=== PATIENT | female | born 1980 | race Caucasian/White ===

== ENCOUNTER 2024-08-29 06:26 | Day surgery (SDC) | payer OTHER, SELFPAY | END 2024-08-29 09:38 | disposition home or self-care (01) | LOC: GI 06:26 | PROVIDERS: ATTENDING PHYSICIAN Internal Medicine Gastroenterology; FAMILY PHYSICIAN Family Medicine | DX: Z12.11 Encounter for screening for malignant neoplasm of colon (principal); K57.30 Diverticulosis of large intestine without perforation or abscess without bleeding; K64.0 First degree hemorrhoids | CPT/HCPCS: G0121 ==

== ENCOUNTER → 2024-11-10 12:22 | Outpatient (REF) | payer OTHER, SELFPAY | LOC: WDC 12:22 | PROVIDERS: ATTENDING PHYSICIAN Family Medicine | DX: Z12.31 Encounter for screening mammogram for malignant neoplasm of breast (principal) | CPT/HCPCS: 77063; 77067 ==

== ENCOUNTER → 2024-12-12 08:52 | Outpatient (REF) | payer OTHER, SELFPAY | LOC: WDC 08:52 | PROVIDERS: ATTENDING PHYSICIAN Family Medicine | DX: R92.2 Inconclusive mammogram (principal); R92.30 Dense breasts, unspecified | CPT/HCPCS: 76641 ==

== ENCOUNTER 2025-02-19 20:14 | Emergency (ER) | payer OTHER, SELFPAY ==
[2025-02-19 20:20] VITALS: BP 158/104
[2025-02-19 20:42] LABS: Hematocrit 36.1 % (37.0-47.0); Hemoglobin 12.6 g/dL (12.0-16.0); Mean Corp Hgb Conc. 34.9 g/dL (33.0-37.0); Mean Corpuscular Volume 85.7 fL (81.0-99.0); Nucleated Red Blood Cells % 0 %; Platelet Count 263 10^3/uL (130-400); Red Cell Dist. Width 11.6 % (11.5-14.5)
[2025-02-19 21:06] LABS: ALT (SGPT) 39 U/L (0-35); AST (SGOT) 32 U/L (14-36); Albumin 4.2 g/dl (3.5-5.0); Alkaline Phosphatase 105 U/L (38-126); Blood Urea Nitrogen 10 mg/dl (7-17); Calcium 9.2 mg/dl (8.4-10.2); Carbon Dioxide 21 mmol/L (22-30); Chloride 103 mmol/L (98-107); Glucose 105 mg/dl (70-99); Potassium 4.0 mmol/L (3.5-5.1); Sodium 134 mmol/L (135-145); Total Protein 7.2 g/dl (6.3-8.2); eGFR > 60.00
--- NOTE | 2025-02-19 21:26 | ED.GENMED ---
History of Present Illness
General
Chief Complaint: Cold/Flu/URI Symptoms
Source: patient
Exam Limitations: none
Time Seen by Provider: 02/19/25 21:13
History of Present Illness
History of Present Illness:
44yoF with history of hypothyroidism presenting with her for evaluation of flu-like symptoms. Symptoms began 4 days ago. She reports fevers, chills, body aches, headache, and cough. Cough is productive of brownish sputum. Her headache
has been ongoing for about 2 to 3 days and is severe. Headache is worse with coughing and she states this is the worst headache she's ever head. Tmax 100. She saw her PCP 3 days ago and COVID/flu testing were negative. She was diagnosed with a
viral illness and advised to use Tylenol/ibuprofen around the clock. She denies any abdominal pain or rashes. No known sick contacts.
Phy Exam
Physical Exam
Physical Exam:
Appears uncomfortable, tearful
General Physical Exam
General Presentation: well appearing
General Skin: warm and dry
General Habitus: normal
General Mental: alert
ENT Exam
ENT Exam: TM's normal, pharynx normal, neck supple, normocephalic and other (Full range of motion of cervical spine without meningismus)
Cardiovascular Exam
Cardiovascular Exam: regular rate/rhythm
Pulmonary Exam
Pulmonary Exam: no respiratory distress, no rales, no crackles, no rhonchi, generalized wheezing and other (Expiratory wheezes noted throughout)
Gastrointestinal Exam
Gastrointestinal Exam: non tender, soft and non distended
Neurological Exam
Neurological Exam: alert, no motor deficits and speech normal
Kenny Coma Scale
Eye Opening: Spontaneous
Verbal Response: Oriented
Motor Response: Obeys Commands
GCS Total Score: 15
Skin Exam
Skin Exam: normal color, warm/dry and no rash
Psychiatric Exam
Psychiatric Exam: normal mood/affect
Sepsis
Sepsis Screening
Sepsis Assessment: Sepsis Ruled Out
Sepsis Screen
Sepsis Screen: Sepsis Ruled Out
Date: 02/20/25
Time: 01:08
Course
Orders/Labs/Results
Orders:
Orders
02/19/25 20:25
Chest [CR Chest - 2 Views ] Urgent
Comment:
Reason For Exam: COUGH/SOB
02/19/25 20:33
Complete Blood Count/With Diff Urgent
Comprehensive Metabolic Panel Urgent
Influenza A+B Rapid Molecular Urgent
PRIYANKA Source: Nasal Swab
Specimen Description:
02/19/25 21:25
0.9% Sodium Chloride 1000 ml [Nss] 1,000 ml IV BOLUS
Diphenhydramine [Benadryl] 25 mg IV NOW STA
Ipratropium/Albuterol Sulfate [Duoneb] 3 ml INH R NOW STA
Ketorolac [Toradol] 15 mg IV NOW STA
Metoclopramide [Reglan] 10 mg IV NOW STA
02/19/25 22:12
CT Head & Neck Angio W/wo IV Urgent
Comment:
Reason For Exam: severe headache
02/19/25 23:23
Ketorolac [Toradol] 15 mg IV NOW STA
02/19/25 23:44
0.9% Sodium Chloride 1000 ml [Nss] 1,000 ml IV BOLUS
Acetaminophen 1000MG/100Ml [Ofirmev] 1,000 mg in 100 ml IV ONCE
Acetaminophen IV Indication:: ED Narcotic Naive Pt-ONCE
Doxycycline [Vibramycin] 100 mg PO NOW STA
02/20/25 00:23
Dexamethasone Sod Phosphate [Decadron] 10 mg IV NOW STA
Abnormal Lab Results
02/19/25
20:33
Hct 36.1 L %
(37.0-47.0)
Absolute Neuts (auto) 8.3 H 10^3/uL
(1.4-6.5)
Neutrophils % 79.9 H %
(42.2-75.2)
Lymphocytes % 12.1 L %
(20.5-51.1)
Sodium 134 L mmol/L
(135-145)
Carbon Dioxide 21 L mmol/L
(22-30)
Glucose 105 H mg/dl
(70-99)
ALT 39 H U/L
(0-35)
02/19/25 20:33
02/19/25 20:33
Vital Signs
Initial and Last Documented VS:
Initial Vital Signs
Temp Pulse Resp BP Pulse Ox
98.7 F 90 26 158/104 98
02/19/25 20:20 02/19/25 20:20 02/19/25 20:20 02/19/25 20:20 02/19/25 20:20
Last Documented Vital Signs
Temp Pulse Resp BP Pulse Ox
98.8 F 91 17 123/75 97
02/20/25 00:24 02/20/25 00:24 02/20/25 00:24 02/20/25 00:24 02/20/25 00:24
MDM/Problems Addressed
Differential Diagnosis Includes:
44yoF here with flu-like symptoms x 4 days. C/o cough, fevers, chills, and severe BOO. Seen by PCP 3 days ago and diagnosed with viral illness. She is hypertensive with otherwise stable vitals. Patient appears uncomfortable on exam although is
nontoxic. Diffuse wheezing noted on lung exam. Differential diagnosis includes: Viral illness, pneumonia, dehydration, migraine, consider subarachnoid hemorrhage, no clinical evidence of meningitis
Initial ED plan: Workup initiated in triage. Labs overall unremarkable and white count within normal limits. Influenza testing negative. Will check chest x-ray and CTA head/neck. IV migraine cocktail and fluid bolus.
*Pulse Oximetry
SaO2: 98
Oxygen Mode of Delivery: Room air
Patient hypoxic: no
*Critical Care Note
Total Time (30-74mins, 75-104mins- exclusive of procedures): Not Applicable
Update Note
Update Note:
CT negative for acute intracranial abnormalities. There is nodular densities noted in both upper lungs likely representing pneumonia. Patient feeling improved on reassessment. Headache is down to a 6/10 in severity although she continues to have
head pain with coughing. Wheezing improved after neb treatment. Vital stable throughout ED stay. No indication for hospitalization and patient also feels comfortable with discharge. She was started on a course of doxycycline. Prescription also
given for albuterol neb solution. Supportive care discussed. Advised close follow-up PCP and ED return precautions reviewed. Patient discharged in stable condition.
ED Attending Note
-
Portions of this chart may have been created with voice recognition software.� Occasional wrong word or��sound alike� substitutions may have occurred due to the inherent limitations of voice recognition software.
Discharge Plan
Departure
Patient Disposition: Home (Routine Discharge)
Date of Disposition: 02/20/25
Time of Disposition: 00:26
Patient with high blood pressure during this ER visit?: Yes
Discharge Problem:
Pneumonia, Bronchospasm, Acute headache
Instructions: Pneumonia in adults - ED (DC)
Prescriptions:
New
doxycycline hyclate 100 mg capsule
100 mg PO BID Qty: 13 0RF
albuterol sulfate 2.5 mg /3 mL (0.083 %) solution for nebulization
2.5 mg inhalation Q6H PRN (Reason: shortness of breath or wheezing) Qty: 75 0RF
Referrals:
Kena Garcia DO [Family Provider, Family Practice]
Activity Restrictions/Additional Instructions:
Take antibiotics as prescribed. Drink plenty of fluids and stay hydrated. You may take Excedrin as needed for headaches. Use nebulizer treatments as needed for wheezing.
Please follow-up with your family doctor within the next 48 hours. Return to the ER with any new or worsening symptoms including shortness of breath.
Interventions
Interventions:
*Risk Screen - Suicide Last Done: 02/19/25 20:20
*General Assessment Last Done: 02/19/25 22:00
*Neglect/Abuse Screening Last Done: 02/19/25 20:20
*ED COVID-19 Vaccine History Last Done: 02/19/25 22:00
*ED Influenza Vaccine History Last Done: 02/19/25 22:00
[facility] Fall Risk Assessment Tool Last Done: 02/19/25 22:01
*Nursing Disposition Last Done: 02/20/25 01:07
ED- Pulmonary Assessment Last Done: 02/19/25 22:02
Discharge Date and Time
Discharge Date/Time: 02/20/25 01:08
Print Language: LITHUANIAN
[2025-02-19] MEDS: NSS 1000 IV ×2 (21:59→23:48)
[2025-02-19 22:02] VITALS: BP 133/102; BMI 31.7
[2025-02-19] MEDS: TORADOL 15 MG IV ×2 (22:06→23:44)
[2025-02-19] MEDS: BENADRYL 25 MG IV (22:11)
[2025-02-19] MEDS: DUONEB 3 ML INH (22:16)
[2025-02-19] MEDS: REGLAN 10 MG IV (22:19)
[2025-02-19 23:11] VITALS: BP 142/89
[2025-02-19] MEDS: VIBRAMYCIN 100 MG PO (23:53)
[2025-02-19] MEDS: OFIRMEV 100 IV (23:53)
[2025-02-20 00:24] VITALS: BP 123/75
[2025-02-20] MEDS: DECADRON 10 MG IV (00:31)
== END 2025-02-20 01:08 | disposition home or self-care (01) ==
LOC: EMR 20:14
PROVIDERS: EMERGENCY PHYSICIAN Student in an Organized Health Care Education/Training Program; FAMILY PHYSICIAN Family Medicine
DX: J18.9 Pneumonia, unspecified organism (principal); J98.01 Acute bronchospasm; R51.9 Headache, unspecified; E03.9 Hypothyroidism, unspecified
CPT/HCPCS: 99284; 94640; 96374; 96375; 96376; 96361; 70496; 70498; 71046; 80053; 85025; 87502; 99285; Q9967

== ENCOUNTER → 2025-02-27 16:51 | Outpatient (REF) | payer OTHER, SELFPAY | LOC: RAD 16:51 | PROVIDERS: ATTENDING PHYSICIAN Physician Assistant | DX: J18.9 Pneumonia, unspecified organism (principal) | CPT/HCPCS: 71046 ==